=== PATIENT | male | born 1940 | race Caucasian/White ===

== ENCOUNTER 2019-06-30 18:09 | Inpatient (IN) | payer OTHER, MEDICARE ==
[~2019-06-30] VITALS: Ht 170.2 cm; Wt 74.8 kg
[~2019-06-30 18:09] MED LIST: ATOR40TA PO; CELE-193 PO; CLOP75TA15 PO; DOCU100C40 PO; GABA-338 PO; HYDR-4353 PO; METH-233 PO; PANT40TA39 PO; TEMA7.5C2 PO
[2019-06-30] MEDS ORDERED: iohexol 350MG/ML 100ml bottle IV ONE (18:35)
[2019-06-30 18:36] LABS: BASOPHILS % (AUTO) 0.4 % (0-1); EOSINOPHILS # (AUTO) 0.2 X10'3 (0-0.9); EOSINOPHILS % (AUTO) 1.7 % (0-6); HEMOGLOBIN 11.2 g/dl (14.0-17.9); LYMPHOCYTES # (AUTO) 2.5 X10'3 (1.1-4.8); LYMPHOCYTES % (AUTO) 26.9 % (21-51); MEAN CORPUSCULAR HEMOGLOBIN 30.8 PG (27.0-31.0); MEAN CORPUSCULAR HGB CONC 32.9 g/dL (33.0-36.5); MEAN CORPUSCULAR VOLUME 93.4 FL (78-98); MEAN PLATELET VOLUME 8.3 FL (7.4-10.4); MONOCYTES # (AUTO) 0.5 X10'3 (0-0.9); MONOCYTES % (AUTO) 5.5 % (2-12); NEUTROPHILS # (AUTO) 6.1 X10'3 (1.8-7.7); NEUTROPHILS % (AUTO) 65.5 % (42-75); PLATELET COUNT 250 X10'3 (140-440); RED BLOOD COUNT 3.64 X10'6 (4.70-6.10); RED CELL DISTRIBUTION WIDTH 12.8 % (11.5-14.5); WHITE BLOOD COUNT 9.3 X10'3 (4.5-11.0)
--- NOTE | 2019-06-30 18:40 | NUR ---
Spoke with Dr. Escamilla about need for c-collar and he instructed not to apply a collar at this time. Pt transported to CT scan via rnatoma with this RN and with tele monitor.
--- NOTE | 2019-06-30 19:19 | NUR ---
Officer Chase Muniz # [id number] with [employer] in the room at this time. Case # [id number].
[2019-06-30 19:36] LABS: CLARITY,URINE CLOUDY (Clear); COLOR,URINE YELLOW (Yellow); GLUCOSE, URINE NEGATIVE (Neg); KETONES,URINE NEGATIVE (Neg); LEUKOCYTE ESTERASE ,URINE MODERATE (Neg); NITRITES, URINE POSITIVE (Neg); OCCULT BLOOD,URINE LARGE (Neg); PROTEIN,URINE 100 mg/dl (Neg)
[2019-06-30 19:43] LABS: UA COLLECTION TYPE URINAL
[2019-06-30 19:46] LABS: SQUAMOUS EPITHELIAL CELL,UR NONE SEEN /LPF (FEW)
[2019-06-30 19:47] LABS: BACTERIA,URINE FEW /HPF (Neg); RBC,URINE 20-50 /HPF (0-2); WBC CLUMPS,URINE MODERATE /HPF (NEGATIVE); WBC,URINE 20-30 /HPF (0-4)
--- NOTE | 2019-06-30 22:32 | NUR ---
Skin tears on the right forearm and left palmar aspect of the hand cleaned with saline, dressed with bacitracin, xeroform gauze and annalisa gauze wrap as instructed by Dr. Escamilla.
[2019-06-30] MEDS ORDERED: acetaminophen 325mg tablet PO PRN (23:10)
[2019-06-30] MEDS ORDERED: ondansetron/PF 4mg/2ml inj IV PRN (23:10)
[2019-06-30] MEDS ORDERED: mag hydrox/Alum hydrox/simeth 30ml oral suspension PO PRN (23:10)
[2019-06-30] MEDS ORDERED: magnesium hydroxide 30ml (MOM) UD suspension PO PRN (23:10)
[2019-06-30] MEDS ORDERED: OXYC-150 PO (23:11)
[2019-06-30] MEDS ORDERED: GABA-532 PO (23:11)
[2019-06-30] MEDS ORDERED: docusate sod 100mg capsule PO PRN (23:20)
--- NOTE | 2019-07-01 | NUR ---
Patient in room ED 12. I have received report from Alba had the opportunity to ask questions and assume patient care. Addendum: 07/01/19 at 0013 by Elza Gold RN Binta SARMIENTO
[2019-07-01] MEDS: oxyCODONE/APAP 10/325mg tablet PO SCH ×4 (00:28→23:32)
[2019-07-01 00:30] VITALS: BP 139/71
[2019-07-01] MEDS: HYDROcodone/acetaminophen 10/325mg tab PO PRN ×3 (05:33→20:18)
[2019-07-01 05:43] LABS: BASOPHILS % (AUTO) 0.2 % (0-1); EOSINOPHILS % (AUTO) 0.1 % (0-6); HEMATOCRIT 33.9 % (42.0-52.0); HEMOGLOBIN 11.3 g/dl (14.0-17.9); LYMPHOCYTES # (AUTO) 1.6 X10'3 (1.1-4.8); LYMPHOCYTES % (AUTO) 15.4 % (21-51); MEAN CORPUSCULAR HEMOGLOBIN 31.1 PG (27.0-31.0); MEAN CORPUSCULAR HGB CONC 33.5 g/dL (33.0-36.5); MEAN CORPUSCULAR VOLUME 92.9 FL (78-98); MEAN PLATELET VOLUME 8.6 FL (7.4-10.4); MONOCYTES # (AUTO) 0.9 X10'3 (0-0.9); MONOCYTES % (AUTO) 8.4 % (2-12); NEUTROPHILS # (AUTO) 7.8 X10'3 (1.8-7.7); NEUTROPHILS % (AUTO) 75.9 % (42-75); PLATELET COUNT 264 X10'3 (140-440); RED BLOOD COUNT 3.65 X10'6 (4.70-6.10); RED CELL DISTRIBUTION WIDTH 12.7 % (11.5-14.5); WHITE BLOOD COUNT 10.3 X10'3 (4.5-11.0)
[2019-07-01 06:20] LABS: ALANINE AMINOTRANSFERASE 38 U/L (12-78); ALBUMIN 3.5 G/DL (3.4-5.0); ALBUMIN/GLOBULIN RATIO 0.9 (1.1-1.5); ALKALINE PHOSPHATASE 74 IU/L (46-116); ANION GAP 12 (8-16); ASPARTATE AMINO TRANSFERASE 75 U/L (10-37); BILIRUBIN,TOTAL 0.5 MG/DL (0.1-1.0); BLOOD UREA NITROGEN 32 MG/DL (7-18); BUN/CREATININE RATIO 13.1 (5.4-32.0); CALCIUM 8.6 MG/DL (8.5-10.1); CHLORIDE 107 MMOL/L (99-107); CREATININE 2.45 MG/DL (0.60-1.10); GLUCOSE 108 MG/DL (70-104); POTASSIUM 4.3 MMOL/L (3.5-5.1); SODIUM 141 MMOL/L (135-145); TOTAL CARBON DIOXIDE 21.9 MMOL/L (24-32); TOTAL PROTEIN 7.3 G/DL (6.4-8.2); eGFR 25 ML/MIN
--- NOTE | 2019-07-01 06:35 | NUR ---
Patient in room ORTHO 4013. I have received report from TORSTEN Bertrand and had the opportunity to ask questions and assume patient care.
--- NOTE | 2019-07-01 07:05 | NUR ---
Problems reprioritized. Patient report given, questions answered & plan of care reviewed with Soumya SARMIENTO and Lesley COULTER.
[2019-07-01 07:50] VITALS: BP 101/60
[2019-07-01] MEDS ORDERED: folic acid 1mg tablet PO SCH (08:00)
[2019-07-01] MEDS ORDERED: calcium carbonate/vitamin D3 tablet PO SCH (08:00)
[2019-07-01] MEDS: gabapentin 300mg capsule PO SCH ×3 (09:57→20:17)
[2019-07-01 10:00] VITALS: BP 139/53
--- NOTE | 2019-07-01 11:46 | NUR ---
Mancilla inserted, patient tolerated procedure well. Initial amount drained upon insertion 200mL.
[2019-07-01] MEDS: sodium bicarbonate inj. 50 ML in dextrose 5%-water 1,000 ML IV SCH ×2 (13:26→21:00)
[2019-07-01] MEDS: Methocarbamol 750 MG TABLET PO PRN (16:50)
[2019-07-01 18:00] VITALS: BP 110/57
--- NOTE | 2019-07-01 18:30 | NUR ---
Problems reprioritized. Patient report given, questions answered & plan of care reviewed with TORSTEN Bertrand.
[2019-07-01] MEDS: pantoprazole 40mg Tablet.DR PO SCH (20:17)
[2019-07-01] MEDS: atorvastatin 20mg tablet PO SCH (20:17)
[2019-07-01 22:00] VITALS: BP 97/48
--- NOTE | 2019-07-01 22:00 | NUR ---
Pt refusing new IV insertion. Educated pt on higher risk of infection with field start IV, as well as needing one for surgery, however, pt still refused. Addendum: 07/02/19 at 0615 by Elza Gold RN WRONG PATIENT
[2019-07-02] MEDS: HYDROcodone/acetaminophen 10/325mg tab PO PRN (02:22)
[2019-07-02] MEDS: Methocarbamol 750 MG TABLET PO PRN (05:09)
[2019-07-02] MEDS: sodium bicarbonate inj. 50 ML in dextrose 5%-water 1,000 ML IV SCH (05:11)
[2019-07-02 06:05] LABS: BASOPHILS % (AUTO) 0.2 % (0-1); EOSINOPHILS # (AUTO) 0.2 X10'3 (0-0.9); EOSINOPHILS % (AUTO) 2.5 % (0-6); HEMATOCRIT 32.5 % (42.0-52.0); HEMOGLOBIN 10.9 g/dl (14.0-17.9); LYMPHOCYTES # (AUTO) 1.4 X10'3 (1.1-4.8); LYMPHOCYTES % (AUTO) 15.9 % (21-51); MEAN CORPUSCULAR HEMOGLOBIN 31.2 PG (27.0-31.0); MEAN CORPUSCULAR HGB CONC 33.4 g/dL (33.0-36.5); MEAN CORPUSCULAR VOLUME 93.4 FL (78-98); MEAN PLATELET VOLUME 8.9 FL (7.4-10.4); MONOCYTES # (AUTO) 0.8 X10'3 (0-0.9); MONOCYTES % (AUTO) 9.7 % (2-12); NEUTROPHILS # (AUTO) 6.2 X10'3 (1.8-7.7); NEUTROPHILS % (AUTO) 71.7 % (42-75); PLATELET COUNT 244 X10'3 (140-440); RED BLOOD COUNT 3.48 X10'6 (4.70-6.10); RED CELL DISTRIBUTION WIDTH 12.9 % (11.5-14.5); WHITE BLOOD COUNT 8.6 X10'3 (4.5-11.0)
[2019-07-02 06:13] LABS: ALANINE AMINOTRANSFERASE 33 U/L (12-78); ALBUMIN 3.3 G/DL (3.4-5.0); ALBUMIN/GLOBULIN RATIO 0.9 (1.1-1.5); ALKALINE PHOSPHATASE 68 IU/L (46-116); ANION GAP 9 (8-16); ASPARTATE AMINO TRANSFERASE 55 U/L (10-37); BILIRUBIN,TOTAL 0.5 MG/DL (0.1-1.0); BLOOD UREA NITROGEN 37 MG/DL (7-18); BUN/CREATININE RATIO 14.8 (5.4-32.0); CALCIUM 8.5 MG/DL (8.5-10.1); CHLORIDE 100 MMOL/L (99-107); GLUCOSE 109 MG/DL (70-104); POTASSIUM 3.9 MMOL/L (3.5-5.1); SODIUM 135 MMOL/L (135-145); TOTAL CARBON DIOXIDE 25.9 MMOL/L (24-32); eGFR 25 ML/MIN
--- NOTE | 2019-07-02 06:36 | NUR ---
Problems reprioritized. Patient report given, questions answered & plan of care reviewed with Ellen SARMIENTO.
[2019-07-02 07:00] VITALS: BP 101/44
--- NOTE | 2019-07-02 07:27 | NUR ---
Patient in room ORTHO 4014. I have received report from Elza and had the opportunity to ask questions and assume patient care.
[2019-07-02] MEDS: oxyCODONE/APAP 10/325mg tablet PO SCH ×3 (07:36→23:54)
[2019-07-02] MEDS: clopidogrel 75mg tablet PO SCH (07:36)
[2019-07-02] MEDS: gabapentin 300mg capsule PO SCH ×3 (07:37→20:53)
[2019-07-02] MEDS: normal saline 1000ml 1,000 ML IV SCH ×2 (08:10→20:57)
--- NOTE | 2019-07-02 10:39 | NUR ---
Page sent to Dr. Gloria [id number] Nolan Joseph - Blood pressure is 88/57 manual. Automatic BP 90/44 MAP of 56. Pt. is asymptomatic. Ellen SARMIENTO, Neuro
[2019-07-02 11:14] VITALS: BP 90/44
--- NOTE | 2019-07-02 11:26 | NUR ---
Student documentation: I have reviewed all interventions, assessments performed and documented by Terell Gregorio. Student Medication Administration: For this medication-pass time frame, all medication were reviewed, dispensed, administered and documented per hospital policy by Terell Gregorio.
--- NOTE | 2019-07-02 12:57 | NUR ---
Patient was seen by at bedside regarding blood pressures. MD wrote to obtain orthostatics q 6 hrs and he will evaluate if the patient needs any new medications. No other new orders at this time.
[2019-07-02 14:00] VITALS: BP_SYST 109; BP_SYST 110; BP_SYST 117; BP_DIAS 57; BP_DIAS 69
[2019-07-02 18:00] VITALS: BP 100/69
--- NOTE | 2019-07-02 18:42 | NUR ---
Problems reprioritized. Patient report given, questions answered & plan of care reviewed with Angelica.
[2019-07-02] MEDS: atorvastatin 20mg tablet PO SCH (20:52)
[2019-07-02] MEDS: pantoprazole 40mg Tablet.DR PO SCH (20:53)
[2019-07-02 22:00] VITALS: BP 98/52
[2019-07-02] MEDS: cyclobenzaprine 10mg tablet PO PRN (22:11)
[2019-07-03] MEDS: HYDROcodone/acetaminophen 10/325mg tab PO PRN ×2 (05:26→11:12)
[2019-07-03 06:00] VITALS: BP 114/53
--- NOTE | 2019-07-03 06:25 | NUR ---
Patient in room ORTHO 4013. I have received report from Angelica and had the opportunity to ask questions and assume patient care.
--- NOTE | 2019-07-03 06:30 | NUR ---
reported to days. noted pt need pain control better
[2019-07-03 06:41] LABS: BASOPHILS % (AUTO) 0.4 % (0-1); EOSINOPHILS # (AUTO) 0.3 X10'3 (0-0.9); EOSINOPHILS % (AUTO) 3.4 % (0-6); HEMOGLOBIN 10.7 g/dl (14.0-17.9); LYMPHOCYTES # (AUTO) 1.2 X10'3 (1.1-4.8); LYMPHOCYTES % (AUTO) 14.2 % (21-51); MEAN CORPUSCULAR HEMOGLOBIN 31.3 PG (27.0-31.0); MEAN CORPUSCULAR HGB CONC 33.4 g/dL (33.0-36.5); MEAN CORPUSCULAR VOLUME 93.6 FL (78-98); MEAN PLATELET VOLUME 9.1 FL (7.4-10.4); MONOCYTES # (AUTO) 0.8 X10'3 (0-0.9); MONOCYTES % (AUTO) 9.1 % (2-12); NEUTROPHILS # (AUTO) 6.1 X10'3 (1.8-7.7); NEUTROPHILS % (AUTO) 72.9 % (42-75); PLATELET COUNT 227 X10'3 (140-440); RED BLOOD COUNT 3.42 X10'6 (4.70-6.10); RED CELL DISTRIBUTION WIDTH 13.1 % (11.5-14.5); WHITE BLOOD COUNT 8.4 X10'3 (4.5-11.0)
[2019-07-03 06:58] LABS: ALANINE AMINOTRANSFERASE 28 U/L (12-78); ALBUMIN/GLOBULIN RATIO 0.8 (1.1-1.5); ALKALINE PHOSPHATASE 70 IU/L (46-116); ANION GAP 8 (8-16); ASPARTATE AMINO TRANSFERASE 37 U/L (10-37); BILIRUBIN,TOTAL 0.4 MG/DL (0.1-1.0); BLOOD UREA NITROGEN 30 MG/DL (7-18); BUN/CREATININE RATIO 13.5 (5.4-32.0); CALCIUM 8.1 MG/DL (8.5-10.1); CHLORIDE 106 MMOL/L (99-107); CREATININE 2.22 MG/DL (0.60-1.10); GLUCOSE 98 MG/DL (70-104); POTASSIUM 3.7 MMOL/L (3.5-5.1); SODIUM 141 MMOL/L (135-145); TOTAL CARBON DIOXIDE 26.8 MMOL/L (24-32); TOTAL PROTEIN 6.7 G/DL (6.4-8.2); eGFR 29 ML/MIN
[2019-07-03] MEDS: gabapentin 300mg capsule PO SCH ×3 (07:17→19:05)
[2019-07-03] MEDS: clopidogrel 75mg tablet PO SCH (07:17)
[2019-07-03] MEDS: normal saline 1000ml 1,000 ML IV SCH ×3 (07:19→21:54)
[2019-07-03 08:00] VITALS: BP_SYST 135; BP_SYST 161; BP_SYST 168; BP_DIAS 58; BP_DIAS 68; BP_DIAS 73
[2019-07-03] MEDS: oxyCODONE/APAP 10/325mg tablet PO SCH ×2 (08:43→16:06)
[2019-07-03 10:00] VITALS: BP 135/58
--- NOTE | 2019-07-03 11:40 | NUR ---
Student Medication Administration: For this medication-pass time frame, all medication were reviewed, dispensed, administered and documented per hospital policy by Keenan SHOEMAKER [facility]. Student documentation: I have reviewed all interventions, assessments performed and documented by Keenan SHOEMAKER [facility].
[2019-07-03] MEDS ORDERED: furosemide 20 MG/2 ML vial IV ONE (12:45)
--- NOTE | 2019-07-03 13:58 | NUR ---
Paged Respiratory Therapy for ABG ordered STAT @ 0930 this morning, it still has not been completed. Waiting for call back.
[2019-07-03 14:16] LABS: ABG HCO3 22.6 mmol/L (22.0-26.0); ABG OXYGEN SATURATION 92.5 % (95-98); ABG PCO2 (T) 37.6 mmHg (35.0-45.0); ABG PH (T) 7.396 (7.350-7.450); ABG PO2 (T) 66.9 mmHg (83-108); FCOHb 2.2 % (0.5-1.5); FLOW 4 L/min; FMetHb 0.2 % (0.3-1.12); FO2Hb 90.3 % (94-100); TOTAL HEMOGLOBIN 10.6 G/dl (14.0-17.9)
[2019-07-03] MEDS ORDERED: oxyCODONE/APAP 10/325mg tablet PO PRN (14:30)
[2019-07-03] MEDS: ipratropium/albuterol 3ml nebule NEB SCH ×2 (15:23→21:15)
[2019-07-03 16:00] VITALS: BP_SYST 107; BP_SYST 117; BP_SYST 137; BP_DIAS 44; BP_DIAS 54; BP_DIAS 66
[2019-07-03 18:00] VITALS: BP 117/44
--- NOTE | 2019-07-03 18:07 | NUR ---
Problems reprioritized. Patient report given, questions answered & plan of care reviewed with Angelica.
[2019-07-03] MEDS: methylPREDNISolone sod succ 125mg/2ml vial IV SCH (19:04)
[2019-07-03] MEDS: atorvastatin 20mg tablet PO SCH (21:49)
[2019-07-03] MEDS: pantoprazole 40mg Tablet.DR PO SCH (21:49)
[2019-07-03 22:00] VITALS: BP_SYST 91; BP_SYST 94; BP_DIAS 50; BP_DIAS 56
[2019-07-04] MEDS: oxyCODONE/APAP 10/325mg tablet PO SCH ×3 (00:45→15:41)
--- NOTE | 2019-07-04 05:45 | NUR ---
pt took shower. noted one dressing on right arm is damp. will have day RN change. oxygen level at 91% while moving. anticipate PT working with pt to see if oxygen needs to be sent home.
[2019-07-04 06:00] VITALS: BP_SYST 140; BP_SYST 91; BP_DIAS 56; BP_DIAS 75
[2019-07-04 06:02] LABS: BASOPHILS % (AUTO) 0.1 % (0-1); EOSINOPHILS % (AUTO) 0 % (0-6); HEMOGLOBIN 10.6 g/dl (14.0-17.9); LYMPHOCYTES # (AUTO) 0.5 X10'3 (1.1-4.8); LYMPHOCYTES % (AUTO) 5.9 % (21-51); MEAN CORPUSCULAR HEMOGLOBIN 31.1 PG (27.0-31.0); MEAN CORPUSCULAR HGB CONC 33.3 g/dL (33.0-36.5); MEAN CORPUSCULAR VOLUME 93.6 FL (78-98); MONOCYTES # (AUTO) 0.4 X10'3 (0-0.9); MONOCYTES % (AUTO) 4.5 % (2-12); NEUTROPHILS # (AUTO) 7.3 X10'3 (1.8-7.7); NEUTROPHILS % (AUTO) 89.5 % (42-75); PLATELET COUNT 276 X10'3 (140-440); RED BLOOD COUNT 3.42 X10'6 (4.70-6.10); RED CELL DISTRIBUTION WIDTH 13.2 % (11.5-14.5); WHITE BLOOD COUNT 8.2 X10'3 (4.5-11.0)
[2019-07-04 06:17] LABS: ALANINE AMINOTRANSFERASE 33 U/L (12-78); ALBUMIN 3.4 G/DL (3.4-5.0); ALBUMIN/GLOBULIN RATIO 0.8 (1.1-1.5); ALKALINE PHOSPHATASE 82 IU/L (46-116); ANION GAP 13 (8-16); ASPARTATE AMINO TRANSFERASE 28 U/L (10-37); BILIRUBIN,TOTAL 0.4 MG/DL (0.1-1.0); BLOOD UREA NITROGEN 37 MG/DL (7-18); BUN/CREATININE RATIO 16.2 (5.4-32.0); CALCIUM 8.6 MG/DL (8.5-10.1); CHLORIDE 103 MMOL/L (99-107); CREATININE 2.28 MG/DL (0.60-1.10); GLUCOSE 123 MG/DL (70-104); POTASSIUM 4.5 MMOL/L (3.5-5.1); SODIUM 138 MMOL/L (135-145); TOTAL CARBON DIOXIDE 21.6 MMOL/L (24-32); TOTAL PROTEIN 7.6 G/DL (6.4-8.2); eGFR 28 ML/MIN
[2019-07-04] MEDS: ipratropium/albuterol 3ml nebule NEB SCH ×3 (07:45→20:47)
[2019-07-04] MEDS: clopidogrel 75mg tablet PO SCH (08:11)
[2019-07-04] MEDS: gabapentin 300mg capsule PO SCH ×2 (08:11→20:05)
[2019-07-04] MEDS: methylPREDNISolone sod succ 125mg/2ml vial IV SCH ×2 (08:17→20:04)
[2019-07-04 09:34] LABS: D-DIMER 5.83 MG/L FEU (0-0.50)
[2019-07-04 09:49] VITALS: BP 130/59
--- NOTE | 2019-07-04 12:35 | NUR ---
O2 Sat at rest on room air: 84% If below 89%: Recovery O2 Sat at rest on 2 LPM: 93% via nasal canula (mask/nasal cannula, etc..) No further documentation is necessary. If O2 Sat did not drop below 89% on room air,ambulate patient on room air. O2 Sat while ambulating on room air:___% Recovery O2 Sat while ambulating on ___LPM:___% No further documentation is necessary. If patient does not drop below 89% while ambulating, he/she does not qualify for home O2.
--- NOTE | 2019-07-04 15:25 | NUR ---
Patient in room ORTHO 4013. I have received report from TORSTEN Hilario and had the opportunity to ask questions and assume patient care.
[2019-07-04] MEDS ORDERED: normal saline 1000ml 1,000 ML IV ONE (17:20)
[2019-07-04 18:00] VITALS: BP 108/50
--- NOTE | 2019-07-04 18:10 | NUR ---
Patient in room ORTHO 4013. I have received report from TORSTEN Gallardo and had the opportunity to ask questions and assume patient care.
--- NOTE | 2019-07-04 19:01 | NUR ---
Problems reprioritized. Patient report given, questions answered & plan of care reviewed with TORSTEN Raya.
[2019-07-04] MEDS: pantoprazole 40mg Tablet.DR PO SCH (20:05)
[2019-07-04] MEDS: atorvastatin 20mg tablet PO SCH (20:05)
[2019-07-04] MEDS: cyclobenzaprine 10mg tablet PO PRN (20:12)
[2019-07-04] MEDS: normal saline 1000ml 1,000 ML IV SCH (21:48)
[2019-07-04 22:00] VITALS: BP 111/52
[2019-07-05] MEDS: oxyCODONE/APAP 10/325mg tablet PO SCH ×2 (00:07→07:53)
[2019-07-05] MEDS: normal saline 1000ml 1,000 ML IV SCH (04:22)
[2019-07-05 06:10] VITALS: BP 114/78
[2019-07-05 06:19] LABS: BASOPHILS % (AUTO) 0.1 % (0-1); EOSINOPHILS % (AUTO) 0 % (0-6); HEMATOCRIT 29.2 % (42.0-52.0); HEMOGLOBIN 9.8 g/dl (14.0-17.9); LYMPHOCYTES # (AUTO) 0.6 X10'3 (1.1-4.8); LYMPHOCYTES % (AUTO) 6.6 % (21-51); MEAN CORPUSCULAR HEMOGLOBIN 31.1 PG (27.0-31.0); MEAN CORPUSCULAR HGB CONC 33.7 g/dL (33.0-36.5); MEAN CORPUSCULAR VOLUME 92.3 FL (78-98); MEAN PLATELET VOLUME 9.1 FL (7.4-10.4); MONOCYTES # (AUTO) 0.4 X10'3 (0-0.9); MONOCYTES % (AUTO) 4.6 % (2-12); NEUTROPHILS # (AUTO) 7.7 X10'3 (1.8-7.7); NEUTROPHILS % (AUTO) 88.7 % (42-75); PLATELET COUNT 241 X10'3 (140-440); RED BLOOD COUNT 3.16 X10'6 (4.70-6.10); RED CELL DISTRIBUTION WIDTH 13.1 % (11.5-14.5); WHITE BLOOD COUNT 8.7 X10'3 (4.5-11.0)
--- NOTE | 2019-07-05 06:20 | NUR ---
Problems reprioritized. Patient report given, questions answered & plan of care reviewed with TORSTEN Culver.
[2019-07-05 06:35] LABS: ALANINE AMINOTRANSFERASE 26 U/L (12-78); ALBUMIN 3.1 G/DL (3.4-5.0); ALBUMIN/GLOBULIN RATIO 0.8 (1.1-1.5); ALKALINE PHOSPHATASE 73 IU/L (46-116); ANION GAP 11 (8-16); ASPARTATE AMINO TRANSFERASE 20 U/L (10-37); BILIRUBIN,TOTAL 0.3 MG/DL (0.1-1.0); BLOOD UREA NITROGEN 36 MG/DL (7-18); BUN/CREATININE RATIO 18.2 (5.4-32.0); CALCIUM 8.2 MG/DL (8.5-10.1); CHLORIDE 107 MMOL/L (99-107); CREATININE 1.98 MG/DL (0.60-1.10); GLUCOSE 133 MG/DL (70-104); POTASSIUM 4.4 MMOL/L (3.5-5.1); SODIUM 141 MMOL/L (135-145); TOTAL CARBON DIOXIDE 22.8 MMOL/L (24-32); TOTAL PROTEIN 6.8 G/DL (6.4-8.2); eGFR 33 ML/MIN
--- NOTE | 2019-07-05 06:39 | NUR ---
Patient in room ORTHO 4013. I have received report from Dorota SARMIENTO and had the opportunity to ask questions and assume patient care.
[2019-07-05] MEDS: gabapentin 300mg capsule PO SCH (07:53)
[2019-07-05] MEDS: methylPREDNISolone sod succ 125mg/2ml vial IV SCH (07:53)
[2019-07-05] MEDS: clopidogrel 75mg tablet PO SCH (07:53)
[2019-07-05] MEDS: ipratropium/albuterol 3ml nebule NEB SCH (09:00)
[2019-07-05 09:06] LABS: CLARITY,URINE SLIGHTLY CLOUDY (Clear); COLOR,URINE STRAW (Yellow); GLUCOSE, URINE NEGATIVE (Neg); KETONES,URINE NEGATIVE (Neg); LEUKOCYTE ESTERASE ,URINE LARGE (Neg); NITRITES, URINE NEGATIVE (Neg); OCCULT BLOOD,URINE MODERATE (Neg); PROTEIN,URINE 30 mg/dl (Neg); UROBILINOGEN,URINE 0.2 E.U/dL (0.2-1.0)
[2019-07-05 09:11] LABS: UA COLLECTION TYPE FOLEY CATH
[2019-07-05 09:12] LABS: BACTERIA,URINE FEW /HPF (Neg); MUCUS STRANDS FEW /LPF (Neg); RBC,URINE 0-2 /HPF (0-2); SQUAMOUS EPITHELIAL CELL,UR NONE SEEN /LPF (FEW); WBC,URINE TNTC /HPF (0-4)
[2019-07-05 09:13] LABS: YEAST FEW /HPF (NEGATIVE)
[2019-07-05] MEDS ORDERED: CefTRIAXone/D5W-Rocephin 1gm 50 ML IV SCH (09:25)
[2019-07-05 10:00] VITALS: BP 146/65
[2019-07-05] MEDS ORDERED: CEFD300C3 PO (11:19)
[2019-07-05] MEDS ORDERED: ALBU8.5H8 INH (11:19)
--- NOTE | 2019-07-05 13:30 | NUR ---
Patient discharged with his son, O@ delivered to bedside for patient. Meds called into [facility] on [address], wound care pictures taken and wounds redressed. I confirmed that home health and PT was arranged for patient. Home meds brought up from pharmacy. Patient taken out in wheelchair.
== END 2019-07-05 13:30 | disposition home health service (06) | DRG 184 ==
LOC: ER 18:10 → ED HOLD 07-01 00:07 → ORTHO 4S 07-01 00:33
PROVIDERS: ADMIT Internal Medicine; ATTEND Family Medicine
PROC: BW211ZZ Computerized Tomography (CT Scan) of Abdomen and Pelvis using Low Osmolar Contrast (ICD-10-PCS; 2019-06-30)
PROC: CB121ZZ Planar Nuclear Medicine Imaging of Lungs and Bronchi using Technetium 99m (Tc-99m) (ICD-10-PCS; principal; 2019-07-04)
DX: S22.41XA Multiple fractures of ribs, right side, initial encounter for closed fracture (principal); E87.2 Acidosis; J44.1 Chronic obstructive pulmonary disease with (acute) exacerbation; N17.9 Acute kidney failure, unspecified; N13.30 Unspecified hydronephrosis; G89.29 Other chronic pain; K21.9 Gastro-esophageal reflux disease without esophagitis; M54.9 Dorsalgia, unspecified; E86.0 Dehydration; N18.9 Chronic kidney disease, unspecified; R09.02 Hypoxemia; S61.412A Laceration without foreign body of left hand, initial encounter; Z79.02 Long term (current) use of antithrombotics/antiplatelets; Z86.73 Personal history of transient ischemic attack (TIA), and cerebral infarction without residual deficits; Z87.891 Personal history of nicotine dependence; V89.2XXA Person injured in unspecified motor-vehicle accident, traffic, initial encounter; Y93.89 Activity, other specified; Y92.89 Other specified places as the place of occurrence of the external cause; Y99.8 Other external cause status; Z88.0 Allergy status to penicillin
CPT/HCPCS: 36415; 36600; 70450; 70486; 71045; 71250; 72125; 72128; 73090; 73130; 74176; 76856; 78582; 80053; 81001; 82803; 82948; 84484; 85018; 85025; 85379; 87081; 87088; 93005; 94640; 94760; 97110; 97112; 97116; 97161; 97530; 99285; A9539; A9540; G0378; J0696; J1940; J2930; J7030; J7070; Q9967

== ENCOUNTER 2020-01-14 15:21 | Emergency (ER) | payer MEDICARE, OTHER ==
[~2020-01-14] VITALS: Ht 170.2 cm; Wt 72.7 kg
[~2020-01-14 15:21] MED LIST changes: +ALBU8.5H8 INH; -CELE-193 PO; -HYDR-4353 PO; +OXYC-150 PO; -TEMA7.5C2 PO
[2020-01-14 15:27] VITALS: BP 146/65
[2020-01-14] MEDS ORDERED: LIDOcaine 1% W/epiNEPHrine 1:200,000 10ml vial IJ ONE (16:55)
[2020-01-14] MEDS ORDERED: TETanus/Pertussis (Acell)/Diphther VAC/PF (Tdap-Adult) 0.5ml syringe IMVAC ONE (16:55)
== END 2020-01-14 17:22 | disposition home or self-care (01) ==
LOC: ER 15:22
DX: S01.01XA Laceration without foreign body of scalp, initial encounter (principal); K21.9 Gastro-esophageal reflux disease without esophagitis; G89.29 Other chronic pain; Z98.890 Other specified postprocedural states; Z88.0 Allergy status to penicillin; Z79.2 Long term (current) use of antibiotics; Z79.899 Other long term (current) drug therapy; Z86.73 Personal history of transient ischemic attack (TIA), and cerebral infarction without residual deficits; W19.XXXA Unspecified fall, initial encounter; Y93.89 Activity, other specified; Y92.89 Other specified places as the place of occurrence of the external cause; Y99.8 Other external cause status
CPT/HCPCS: 70450; 72125; 90471; 90715; 99285

== ENCOUNTER 2021-01-11 14:05 | Emergency (ER) | payer MEDICARE ==
[~2021-01-11] VITALS: Ht 170.2 cm; Wt 72.2 kg
[~2021-01-11 14:05] MED LIST changes: +CEFD300C3 PO; +LACT1CAP26 PO
--- NOTE | 2021-01-11 17:16 | NUR ---
urologist dr garcia: could not see him till next week here to have fc removed: placed during his last hospitalization: per patient 3 weeks ago here ua sent
[2021-01-11 17:46] LABS: CLARITY,URINE CLOUDY (Clear); COLOR,URINE STRAW (Yellow); GLUCOSE, URINE NEGATIVE (Neg); KETONES,URINE NEGATIVE (Neg); LEUKOCYTE ESTERASE ,URINE LARGE (Neg); NITRITES, URINE POSITIVE (Neg); OCCULT BLOOD,URINE MODERATE (Neg); PH,URINE 5.5 (4.8-8.0); PROTEIN,URINE 30 mg/dl (Neg); UROBILINOGEN,URINE 0.2 E.U/dL (0.2-1.0)
[2021-01-11 17:50] LABS: UA COLLECTION TYPE FOLEY CATH
[2021-01-11 17:52] LABS: WBC,URINE TNTC /HPF (0-4)
[2021-01-11 17:54] LABS: BACTERIA,URINE 1+ /HPF (Neg); SQUAMOUS EPITHELIAL CELL,UR NONE SEEN /LPF (FEW)
[2021-01-11 17:55] LABS: RBC,URINE 0-2 /HPF (0-2); YEAST MANY /HPF (NEGATIVE)
[2021-01-11] MEDS ORDERED: phenazopyridine 100mg tablet PO ONE (18:15)
[2021-01-11] MEDS ORDERED: bacitracin 15gm ointment TP ONE (18:15)
[2021-01-11] MEDS ORDERED: opium/belladonna alkaloids No. 15A 30mg rectal suppository RC ONE (18:20)
[2021-01-11] MEDS ORDERED: B030R RC (18:36)
[2021-01-11] MEDS ORDERED: PHEN-716 PO (18:36)
[2021-01-11] MEDS ORDERED: BACI1PAC7 TP (18:36)
[2021-01-11 19:11] VITALS: BP 129/67
== END 2021-01-11 19:13 | disposition home or self-care (01) ==
LOC: ER 14:06
DX: N48.89 Other specified disorders of penis (principal); R30.0 Dysuria; K21.9 Gastro-esophageal reflux disease without esophagitis; G89.29 Other chronic pain; Z86.73 Personal history of transient ischemic attack (TIA), and cerebral infarction without residual deficits; Z98.890 Other specified postprocedural states; Z79.899 Other long term (current) drug therapy; Z88.0 Allergy status to penicillin; Z88.2 Allergy status to sulfonamides; Z88.8 Allergy status to other drugs, medicaments and biological substances; Z96.0 Presence of urogenital implants
CPT/HCPCS: 81001; 87077; 87088; 87186; 99284

== ENCOUNTER 2021-02-28 16:43 | Emergency (ER) | payer MEDICARE ==
[~2021-02-28] VITALS: Ht 170.2 cm; Wt 71.0 kg
[~2021-02-28 16:43] MED LIST changes: -CEFD300C3 PO; +PHEN-716 PO
[2021-02-28 17:02] VITALS: BP 145/63
== END 2021-02-28 19:09 | disposition home or self-care (01) ==
LOC: ER 16:45
DX: I87.2 Venous insufficiency (chronic) (peripheral) (principal); K21.9 Gastro-esophageal reflux disease without esophagitis; G89.29 Other chronic pain; Z86.73 Personal history of transient ischemic attack (TIA), and cerebral infarction without residual deficits; Z85.9 Personal history of malignant neoplasm, unspecified; Z98.890 Other specified postprocedural states; Z88.0 Allergy status to penicillin; Z88.1 Allergy status to other antibiotic agents; Z88.8 Allergy status to other drugs, medicaments and biological substances; Z79.899 Other long term (current) drug therapy
CPT/HCPCS: 93971; 99284

== ENCOUNTER 2024-03-25 12:28 | Outpatient (CLI) | payer MEDICARE ==
[~2024-03-25 12:28] MED LIST changes: +ALBU8.5H17 INH; -ALBU8.5H8 INH
== END 2024-03-25 23:59 | disposition home or self-care (01) ==
LOC: VAS 12:28
PROVIDERS: ATTEND Family Medicine
DX: M79.89 Other specified soft tissue disorders (principal)
CPT/HCPCS: 93971